=== PATIENT | female | born 1925 | race Caucasian/White ===

== ENCOUNTER 2016-05-03 11:57 | Outpatient (CLI) | payer MEDICARE, OTHER ==
[~2016-05-03] VITALS: Ht 157.5 cm; Wt 66.2 kg
[~2016-05-03 11:57] MED LIST: ACET-168 PO; ACHD5005 PO; ALN70T PO; ALPR0.254 PO; AMLO10TA PO; AMLO10TA82 PO; AMLO5TAB2 PO; AMLO5TAB4 PO; ASCO500C14 PO; ASPI-892 PO; ASPIRIN PO; BIOTIN 5000 MCG PO; BISA5TAB20 PO; CALC-656 PO; CALC-781 PO; CALC3.7S2; CARV12.53 PO; CARV25TA PO; CARV6.25 PO; CARV6.252 PO; CEFT1VIA58 IM; CHOL10003 PO; CHOL10007 PO; CLD600T; CND32T; CRV25T PO; CYAN10007 PO; DICL50TA6; DOXA8TAB3 PO; DOXA8TAB33 PO; E400C; FERR325C PO; FURO20TA4 PO; FURO40TA4 PO; HYDR-3812 PO; HYDR1TAB PO; HYDR1TAB66 PO; L.AC1CAP6 PO; LOSA100T16 PO; LOSA100T7 PO; LUTE10TA PO; LUTE20TA PO; LUTEIN 20MG; MAGN400O7 PO; MECL-106 PO; MECL12.579 PO; MERO500V3 IV; MICO142C TP; MULT-10 PO; MULT-166 PO; MULT-928 PO; MULT1CAP27 PO; NAPR220C11 PO; NITR-65 PO; NITR100C10 PO; OMEG-11 PO; OMEP20CA12 PO; ONDA4TAB10 PO; POTA10CA43 PO; POTA10TA36 PO; POTA99TA15 PO; POTA99TA7 PO; SENN1TAB33 PO; TOLT4CAP13 PO; TOLTA4 PO; TRAM50TA2 PO; TRIA1TAB3 PO; VITA-198 PO; VITA10007 PO; oscal PO; potassium PO; vit b 12 PO; vit c; vit d PO; vit e
--- OUTSIDE RECORDS SUMMARY | 2016-05-03 12:01 | XMS REPORT | Continuity of Care Document ---
Author Author [facility] Organization [facility] Address Unknown Phone Unavailable Allergies Active Description Code Type Severity Reaction Onset Reported/Identified Relationship to Patient Clinical Status Yes acetaminophen [id number] Drug Allergy Unknown N/A 02/17/2011 Yes propoxyphene napsylate [id number] Drug Allergy Unknown N/A 02/17/2011 Yes egg [id number] Drug Allergy Unknown N/A 04/29/2014 Medications Problems Date Dx Coded Attending Type Code Diagnosis Diagnosed By 10/25/2011 Ot 285.9 10/25/2011 Ot 458.9 10/25/2011 Ot 780.4 10/25/2011 Ot 913.4 10/25/2011 Ot E906.4 01/30/2014 MARY CASAS LIDAR SCIENTIST Ot 564.00 01/30/2014 MARY CASAS APRN Ot 789.04 03/25/2014 SHANNA ALBRIGHT, MARCO ANTONIO Boone Ot 599.0 04/26/2014 SHANNA ALBRIGHT, MARCO ANTONIO Boone Ot 599.0 04/29/2014 Ot 285.9 04/29/2014 Ot 787.7 04/29/2014 Ot 401.9 04/29/2014 Ot 530.81 04/29/2014 Ot 715.90 04/29/2014 Ot 724.5 04/29/2014 Ot 737.10 04/29/2014 Ot 781.2 04/29/2014 Ot 401.9 04/29/2014 Ot 530.81 04/29/2014 Ot 715.90 04/29/2014 Ot 724.5 04/29/2014 Ot 737.10 04/29/2014 Ot 781.2 06/14/2014 SHANNA ALBRIGHT, MARCO ANTONIO Boone Ot 599.0 11/08/2014 SANDI ALBRIGHT, CASSIDY Rasheed Ot 272.0 11/08/2014 SANDI ALBRIGHT, CASSIDY T Ot 401.9 11/08/2014 SANDI ALBRIGHT, CASSIDY T Ot 443.9 11/08/2014 SANDI ALBRIGHT, CASSIDY T Ot 733.00 11/08/2014 SANDI ALBRIGHT, CASSIDY T Ot 782.3 11/08/2014 SANDI ALBRIGHT, CASSIDY T Ot 821.20 11/08/2014 SANDI ALBRIGHT, CASSIDY T Ot 959.6 11/08/2014 SANDI LABRIGHT, CASSIDY T Ot E000.8 11/08/2014 SANDI ALBRIGHT, CASSIDY T Ot E849.0 11/08/2014 SANDI ALBRIGHT, CASSIDY T Ot E888.9 11/08/2014 SANDI ALBRIGHT, CASSIDY T Ot V45.01 11/08/2014 SANDI ALBRIGHT, CASSIDY T Ot V49.65 05/02/2015 MARCO ANTONIO OTERO MD Ot E78.0 PURE HYPERCHOLESTEROLEMIA 05/02/2015 MARCO ANTONIO OTERO MD Ot E78.5 HYPERLIPIDEMIA, UNSPECIFIED 05/02/2015 MARCO ANTONIO OTERO MD Ot E87.6 HYPOKALEMIA 05/02/2015 MARCO ANTONIO OTERO MD Ot I10 ESSENTIAL (PRIMARY) HYPERTENSION 05/02/2015 MARCO ANTONIO OTERO MD Ot I73.9 PERIPHERAL VASCULAR DISEASE, UNSPECIFIED 05/02/2015 MARCO ANTONIO OTERO MD Ot J18.9 PNEUMONIA, UNSPECIFIED ORGANISM 05/02/2015 MARCO ANTONIO OTERO MD Ot K52.9 NONINFECTIVE GASTROENTERITIS AND COLITIS 05/02/2015 MARCO ANTONIO OTERO MD Ot M81.0 AGE-RELATED OSTEOPOROSIS W/O CURRENT PAT 05/02/2015 MARCO ANTONIO OTERO MD Ot R35.0 FREQUENCY OF MICTURITION 05/02/2015 MARCO ANTONIO OTERO MD Ot Z95.0 PRESENCE OF CARDIAC PACEMAKER 05/02/2015 MARCO ANTONIO OTERO MD Ot Z95.828 PRESENCE OF OTHER VASCULAR IMPLANTS AND 05/16/2015 MARCO ANTONIO OTERO MD Ot R30.0 05/17/2015 MARCO ANTONIO OTERO MD Ot B96.20 05/17/2015 MARCO ANTONIO OTERO MD Ot I10 05/17/2015 MARCO ANTONIO OTERO MD Ot J18.9 05/17/2015 MARCO ANTONIO OTERO MD, Ot J81.1 05/17/2015 SHANNA ALBRIGHT, MARCO ANTONIO A Ot J90 05/17/2015 SHANNA ALBRIGHT, MARCO ANTONIO A Ot M81.0 05/17/2015 SHANNA ALBRIGHT, MARCO ANTONIO A Ot N39.0 05/17/2015 SHANNA ALBRIGHT, MARCO ANTONIO A Ot R09.02 05/17/2015 SHANNA ALBRIGHT, MARCO ANTONIO A Ot R41.0 05/17/2015 SHANNA ALBRIGHT, MARCO ANTONIO A Ot Z23 05/17/2015 SHANNA ALBRIGHT, MARCO ANTONIO A Ot Z66 05/17/2015 SHANNA ALBRIGHT, MARCO ANTONIO A Ot Z95.0 05/19/2015 SHANNA ALBRIGHT, MARCO ANTONIO A Ot I25.10 05/19/2015 SHANNA ALBRIGHT, MARCO ANTONIO A Ot R06.00 05/19/2015 SHANNA ALBRIGHT, MARCO ANTONIO A Ot R60.9 06/06/2015 SHANNA ALBRIGHT, MARCO ANTONIO A Ot I25.10 06/06/2015 SHANNA ALBRIGHT, MARCO ANTONIO A Ot R06.00 06/06/2015 SHANNA ALBRIGHT, MARCO ANTONIO A Ot R60.9 07/18/2015 SRIKANTH IRWIN DO, Ot G31.9 DEGENERATIVE DISEASE OF NERVOUS SYSTEM, 07/18/2015 SRIKANTH IRWIN DO, Ot M47.812 SPONDYLOSIS W/O MYELOPATHY OR RADICULOPA 07/18/2015 SRIKANTH IRWIN DO, Ot S01.01XA LACERATION WITHOUT FOREIGN BODY OF SCALP 07/18/2015 SRIKANTH IRWIN DO, Ot S16.1XXA STRAIN OF MUSCLE, FASCIA AND TENDON AT N 07/18/2015 SRIKANTH IRWIN DO Ot W07.XXXA FALL FROM CHAIR, INITIAL ENCOUNTER 07/18/2015 SRIKANTH IRWIN DO, Ot Y92.[address] IN SKILLED NURSING PLACE 07/18/2015 SRIKANTH IRWIN DO, Ot Y99.8 OTHER EXTERNAL CAUSE STATUS 07/28/2015 SRIKANTH IRWIN DO, Ot G31.9 DEGENERATIVE DISEASE OF NERVOUS SYSTEM, 07/28/2015 SRIKANTH IRWIN DO, Ot M47.812 SPONDYLOSIS W/O MYELOPATHY OR RADICULOPA 07/28/2015 SRIKANTH IRWIN DO, Ot S01.01XA LACERATION WITHOUT FOREIGN BODY OF SCALP 07/28/2015 SRIKANTH IRWIN DO Ot S16.1XXA STRAIN OF MUSCLE, FASCIA AND TENDON AT N 07/28/2015 SRIKANTH IRWIN DO Ot W07.XXXA FALL FROM CHAIR, INITIAL ENCOUNTER 07/28/2015 SRIKANTH IRWIN DO Ot Y92.[address] IN SKILLED NURSING PLACE 07/28/2015 SRIKANTH IRWIN DO Ot Y99.8 OTHER EXTERNAL CAUSE STATUS Procedures Results Encounters ACCT No. Visit Date/Time Discharge Status Pt. Type Provider Facility Loc./Unit Complaint [id number] 07/18/2015 16:43:00 2015 18:00:00 DIS Emergency SRIKANTH IRWIN DO [facility] ER [id number] 05/14/2015 03:32:00 2015 11:16:00 DIS Inpatient MARCO ANTONIO OTERO MD Via [address] [id number] 04/27/2015 20:19:00 2015 15:05:00 DIS Inpatient MARCO ANTONIO OTERO MD Via [address] [id number] 11/08/2014 09:18:00 2014 12:35:00 DIS Emergency CASSIDY JUNIOR MD Via [facility] [id number] 05/21/2014 18:20:00 2014 23:59:59 CLS Outpatient MARCO ANTONIO OTERO MD Via [facility] [id number] 04/21/2014 13:12:00 2014 23:59:59 CLS Preadmit MARCO ANTONIO OTERO MD Via [facility] REHAB [id number] 04/16/2014 16:46:00 2014 23:59:59 CLS Outpatient MARCO ANTONIO OTERO MD Via [facility] [id number] 02/26/2014 11:45:00 2013 23:59:59 CLS Outpatient MARCO ANTONIO OTERO MD [facility] [id number] 01/30/2014 15:39:00 2013 19:08:00 DIS Emergency MARY CASAS APRN [facility] [id number] 03/20/2013 08:22:00 2013 09:38:00 DIS Outpatient [id number] 01/23/2013 07:36:00 2012 08:44:00 DIS Outpatient [id number] 07/04/2012 09:30:00 2012 23:59:59 CLS Outpatient [id number] 05/08/2015 16:26:00 ACT Outpatient MARCO ANTONIO OTERO MD [facility] LAB [id number] 04/22/2015 20:14:00 ACT Outpatient MARCO ANTONIO OTERO MD [facility] [id number] 04/29/2014 00:40:00 Document Registration [id number] 10/24/2011 10:35:00 Document Registration [id number] 06/27/2010 00:00:00 Document Registration
[2016-05-03 12:10] VITALS: BP 153/73
[2016-05-03] MEDS ORDERED: ASCO500T6 PO (12:21)
[2016-05-03] MEDS ORDERED: POTA2TAB15 PO (12:21)
[2016-05-03] MEDS ORDERED: LOSA50TA36 PO (12:21)
[2016-05-03] MEDS ORDERED: DOXA8TAB73 PO (12:21)
[2016-05-03 13:04] LABS: BASOPHILS % (AUTO) 1 % (0-10); EOSINOPHILS # (AUTO) 0.1 10^3/uL (0.0-0.3); EOSINOPHILS % (AUTO) 2 % (0-10); LYMPHOCYTES # (AUTO) 1.7 X 10^3 (1.0-4.0); LYMPHOCYTES % (AUTO) 27 % (12-44); MEAN CORPUSCULAR HEMOGLOBIN 30 PG (25-34); MEAN CORPUSCULAR HGB CONC 33 G/DL (32-36); MEAN CORPUSCULAR VOLUME 93 FL (80-99); MEAN PLATELET VOLUME 9.7 FL (7.4-10.4); MONOCYTES # (AUTO) 0.4 X 10^3 (0.0-1.0); MONOCYTES % (AUTO) 7 % (0-12); NEUTROPHILS % (AUTO) 64 % (42-75); PLATELET COUNT 164 10^3/uL (130-400); RED BLOOD COUNT 3.43 10^6/uL (4.35-5.85); RED CELL DISTRIBUTION WIDTH 12.5 % (10.0-14.5); WHITE BLOOD COUNT 6.2 10^3/uL (4.3-11.0)
[2016-05-03 13:21] LABS: CREATININE SERUM 0.94 MG/DL (0.60-1.30); POTASSIUM 3.5 MMOL/L (3.6-5.0)
== END 2016-05-03 12:40 | disposition home or self-care (01) ==
LOC: PREOP 11:57
PROVIDERS: ATTEND Otolaryngology Otolaryngology/Facial Plastic Surgery
DX: Z01.812 Encounter for preprocedural laboratory examination (principal); Z11.2 Encounter for screening for other bacterial diseases; L98.9 Disorder of the skin and subcutaneous tissue, unspecified
CPT/HCPCS: 36415; 80048; 85025; 87081; 93005

== ENCOUNTER → 2016-05-08 | Outpatient (CLI) | payer MEDICARE, OTHER ==
[~2016-05-08] VITALS: Ht 160 cm; Wt 66.7 kg
[~2016-05-08] MED LIST changes: +ASCO500T6 PO; +CEPH-507 PO; +DOXA8TAB73 PO; +LOSA50TA36 PO; +MUPI22OI2 TP; +POTA2TAB15 PO; +REGADENOSON 0.4 MG/5 ML SYR (LEXISCAN) IV ONE
--- OUTSIDE RECORDS SUMMARY | 2016-05-08 11:51 | XMS REPORT | Continuity of Care Document ---
Author Author [facility] Organization [facility] Address Unknown Phone Unavailable Allergies Active Description Code Type Severity Reaction Onset Reported/Identified Relationship to Patient Clinical Status Yes acetaminophen [id number] Drug Allergy Unknown N/A 02/17/2011 Yes propoxyphene napsylate [id number] Drug Allergy Unknown N/A 02/17/2011 Yes egg [id number] Drug Allergy Unknown N/A 04/29/2014 Medications Problems Date Dx Coded Attending Type Code Diagnosis Diagnosed By 10/25/2011 Ot 285.9 10/25/2011 Ot 458.9 10/25/2011 Ot 780.4 10/25/2011 Ot 913.4 10/25/2011 Ot E906.4 01/30/2014 MARY CASAS PUBLIC INTERVIEWER Ot 564.00 01/30/2014 MARY CASAS APRN Ot [...] ALBRIGHT, CASSIDY T Ot 959.6 11/08/2014 SANDI ALBRIGHT, CASSIDY T Ot E000.8 11/08/2014 SANDI ALBRIGHT, [...] IRWIN DO, Ot Y92.[address] IN LONG TERM PLACE 07/18/2015 SRIKANTH IRWIN DO, Ot Y99.8 [...] IRWIN DO Ot Y92.[address] IN LONG TERM PLACE 07/28/2015 SRIKANTH IRWIN DO Ot Y99.8 OTHER EXTERNAL CAUSE STATUS 05/02/2016 Ot 729.5 PAIN IN LIMB 05/02/2016 Ot 729.81 SWELLING OF LIMB 05/02/2016 Ot 782.3 EDEMA 05/02/2016 Ot V45.89 POSTSURGICAL STATES NEC 05/03/2016 YASMIN MAHARAJ MD Ot L98.9 DISORDER OF THE SKIN AND SUBCUTANEOUS TI 05/03/2016 YASMIN MAHARAJ MD Ot Z01.812 ENCOUNTER FOR PREPROCEDURAL LABORATORY E 05/03/2016 YASMIN MAHARAJ MD Ot Z11.2 ENCOUNTER FOR SCREENING FOR OTHER BACTER 05/04/2016 YASMIN MAHARAJ MD Ot L98.9 DISORDER OF THE SKIN AND SUBCUTANEOUS TI 05/04/2016 YASMIN MAHARAJ MD Ot Z01.812 ENCOUNTER FOR PREPROCEDURAL LABORATORY E 05/04/2016 YASMIN MAHARAJ MD Ot Z11.2 ENCOUNTER FOR SCREENING FOR OTHER BACTER 05/05/2016 YASMIN MAHARAJ MD Ot L98.9 DISORDER OF THE SKIN AND SUBCUTANEOUS TI 05/05/2016 YASMIN MAHARAJ MD Ot Z01.812 ENCOUNTER FOR PREPROCEDURAL LABORATORY E 05/05/2016 YASMIN MAHARAJ MD Ot Z11.2 ENCOUNTER FOR SCREENING FOR OTHER BACTER Procedures Results Test Result Range Complete blood count (CBC) with automated white blood cell (WBC) differential - 05/03/16 12:35 Blood leukocytes automated count (number/volume) 6.2 10*3/ uL 4.3-11.0 Blood erythrocytes automated count (number/volume) 3.43 10*6 /uL 4.35-5.85 Venous blood hemoglobin measurement (mass/volume) 10.4 g/dL 11.5-16.0 Blood hematocrit (volume fraction) 32 % 35-52 Automated erythrocyte mean corpuscular volume 93 [foz_us] 80-99 Automated erythrocyte mean corpuscular hemoglobin (mass per erythrocyte) 30 pg 25-34 Automated erythrocyte mean corpuscular hemoglobin concentration measurement ( mass/volume) 33 g/dL 32-36 Automated erythrocyte distribution width ratio 12.5 % 10.0-14.5 Automated blood platelet count (count/volume) 164 10*3/uL 130-400 Automated blood platelet mean volume measurement 9.7 [foz_us ] 7.4-10.4 Automated blood neutrophils/100 leukocytes 64 % 42-75 Automated blood lymphocytes/100 leukocytes 27 % 12-44 Blood monocytes/100 leukocytes 7 % 0-12 Automated blood eosinophils/100 leukocytes 2 % 0-10 Automated blood basophils/100 leukocytes 1 % 0-10 Blood neutrophils automated count (number/volume) 4.0 10*3 1.8-7.8 Blood lymphocytes automated count (number/volume) 1.7 10*3 1.0-4.0 Blood monocytes automated count (number/volume) 0.4 10*3 0.0-1.0 Automated eosinophil count 0.1 10*3/uL 0.0-0.3 Automated blood basophil count (count/volume) 0.0 10*3/uL 0.0-0.1 Whole blood basic metabolic panel - 05/03/16 12:35 Serum or plasma sodium measurement (moles/volume) 143 mmol/ L 135-145 Serum or plasma potassium measurement (moles/volume) 3.5 mmol/L 3.6-5.0 Serum or plasma chloride measurement (moles/volume) 109 mmol /L 98-107 Carbon dioxide 23 mmol/L 21-32 Serum or plasma anion gap determination (moles/volume) 11 mmol/L 5-14 Serum or plasma urea nitrogen measurement (mass/volume) 30 mg/dL 7-18 Serum or plasma creatinine measurement (mass/volume) 0.94 mg /dL 0.60-1.30 Serum or plasma urea nitrogen/creatinine mass ratio 32 NRG Serum or plasma creatinine measurement with calculation of estimated glomerular filtration rate 56 NRG Serum or plasma glucose measurement (mass/volume) 93 mg/dL 70-105 Serum or plasma calcium measurement (mass/volume) 9.0 mg/dL 8.5-10.1 Methicillin resistant Staphylococcus aureus (MRSA) screening culture - 12:35 Methicillin resistant Staphylococcus aureus (MRSA) screening culture NEG NRG Encounters ACCT No. Visit Date/Time Discharge Status Pt. Type Provider Facility Loc./Unit Complaint [id number] 05/03/2016 11:57:00 2016 12:40:00 DIS Outpatient CAROL ANN ALBRIGHT, YASMIN P [facility] PREOP LESIONS X2 [id number] 07/18/2015 16:43:00 2015 18:00:00 DIS Emergency SRIKANTH IRWIN DO [facility] ER [id number] 05/14/2015 03:32:00 2015 11:16:00 DIS Inpatient MARCO ANTONIO OTERO MD Via [address] [id number] 04/27/2015 20:19:00 2015 15:05:00 DIS Inpatient MARCO ANTONIO OTERO MD Via [address] [id number] 11/08/2014 09:18:00 2014 12:35:00 DIS Emergency SANDI ALBRIGHT, CASSIDY Rasheed [facility] ER [id number] 05/21/2014 18:20:00 2014 23:59:59 CLS Outpatient MARCO ANTONIO OTERO MD [facility] [id number] 04/21/2014 13:12:00 2014 23:59:59 CLS Preadmit MARCO ANTONIO OTERO MD [facility] REHAB [id number] 04/16/2014 16:46:00 2014 23:59:59 CLS Outpatient MARCO ANTONIO OTERO MD [facility] LABNPT [id number] 02/26/2014 11:45:00 2013 23:59:59 CLS Outpatient MARCO ANTONIO OTERO MD [facility] LABNPT [id number] 01/30/2014 15:39:00 2013 19:08:00 DIS Emergency MARY CASAS APRN [facility] ER [id number] 03/20/2013 08:22:00 2013 09:38:00 DIS Outpatient [id number] 01/23/2013 07:36:00 2012 08:44:00 DIS Outpatient [id number] 07/04/2012 09:30:00 2012 23:59:59 CLS Outpatient [id number] 05/10/2016 08:00:00 PEN Keisha MAHARAJ MD, YASMIN Villanueva [facility] SDC LESIONS X2 [id number] 05/08/2015 16:26:00 ACT Outpatient MARCO ANTONIO OTERO MD [facility] LAB [id number] 04/22/2015 20:14:00 ACT Outpatient MARCO ANTONIO OTERO MD [facility] [id number] 04/29/2014 00:40:00 Document Registration [id number] 10/24/2011 10:35:00 Document Registration [id number] 02/17/2011 22:12:00 Document Registration [id number] 06/27/2010 00:00:00 Document Registration
[2016-05-08] MEDS: CATHETER FLUSH 10 ML SYR IV PRN ×2 (12:13→13:32)
[2016-05-08 13:28] VITALS: BP 155/67
--- NOTE | 2016-05-10 09:42 | STRESS TEST ---
PROCEDURE PHYSICIAN: BRENDA ALMAZAN DATE OF PROCEDURE: 05/08/2016 RESTING AND POST REGADENOSON TECHNETIUM 99M TETROFOSMIN SPECT CT IMAGING: ORDERING PHYSICIAN: Dr. Almazan PRIMARY PHYSICIAN: Dr. Barajas CLINICAL DIAGNOSIS: 1. Shortness of breath. 2. Peripheral arterial disease. Baseline images were carried out after injection of 10.4 mCi of technetium 99m tetrofosmin. This was followed by 0.4 mg of regadenoson and 30.3 mCi of technetium 99m tetrofosmin for stress imaging. The electrocardiogram showed sinus rhythm at baseline although P-waves are sometimes difficult to locate. The electrocardiogram did not change significantly with regadenoson infusion. Images at rest and following stress, does not indicate any distinct perfusion defects consistent with significant myocardial ischemia or infarction. Some degree of diaphragmatic attenuation seen both at rest and following regadenoson infusion. Gated images show normal global left ventricular systolic function with normal regional wall motion. Left ventricular ejection fraction is calculated to be 81%. Left ventricular end-diastolic volume is 51 mL. CONCLUSIONS: 1. No evidence of significant myocardial ischemia or infarction on this study. 2. Normal regional wall motion. 3. Normal global left ventricular systolic function with a calculated ejection fraction 81%. Job ID: [id number] Dictated Date: 05/09/2016 17:23:16 Equipment Engineering Technician Date: 05/10/2016 09:38:16 / jose guadalupe
== END ==
LOC: CARD 11:47
PROVIDERS: ATTEND Internal Medicine Cardiovascular Disease
DX: I73.89 Other specified peripheral vascular diseases (principal); R06.02 Shortness of breath; Z95.0 Presence of cardiac pacemaker; I10 Essential (primary) hypertension; I70.1 Atherosclerosis of renal artery; I65.23 Occlusion and stenosis of bilateral carotid arteries
CPT/HCPCS: 78452; 93017

== ENCOUNTER 2016-05-10 06:11 | Day surgery (SDC) | payer MEDICARE, OTHER ==
[~2016-05-10] VITALS: Ht 157.5 cm; Wt 66.2 kg
[~2016-05-10 06:11] MED LIST changes: -CEPH-507 PO; -MUPI22OI2 TP
--- OUTSIDE RECORDS SUMMARY | 2016-05-10 06:16 | XMS REPORT | Continuity of Care Document ---
Author Author [facility] Organization [facility] Address Unknown Phone Unavailable Allergies Active Description Code Type Severity Reaction Onset Reported/Identified Relationship to Patient Clinical Status Yes acetaminophen [id number] Drug Allergy Unknown N/A 02/17/2011 Yes propoxyphene napsylate [id number] Drug Allergy Unknown N/A 02/17/2011 Yes egg [id number] Drug Allergy Unknown N/A 04/29/2014 Medications Problems Date Dx Coded Attending Type Code Diagnosis Diagnosed By 10/25/2011 Ot 285.9 10/25/2011 Ot 458.9 10/25/2011 Ot 780.4 10/25/2011 Ot 913.4 10/25/2011 Ot E906.4 01/30/2014 MARY CASAS ASSISTED LIVING NURSING DIRECTOR Ot 564.00 01/30/2014 MARY CASAS APRN Ot [...] IRWIN DO, Ot Y92.[address] IN USP PLACE 07/18/2015 SRIKANTH IRWIN DO, Ot Y99.8 [...] IRWIN DO Ot Y92.[address] IN USP PLACE 07/28/2015 SRIKANTH IRWIN DO Ot Y99.8 [...] Z11.2 ENCOUNTER FOR SCREENING FOR OTHER BACTER 05/08/2016 CARLOS ALBRIGHT FACC, ALI FACP CCDS Ot R06.02 SHORTNESS OF BREATH 05/09/2016 YASMIN MAHARAJ MD Ot L98.9 DISORDER OF THE SKIN AND SUBCUTANEOUS TI 05/09/2016 YASMIN MAHARAJ MD Ot Z01.812 ENCOUNTER FOR PREPROCEDURAL LABORATORY E 05/09/2016 YASMIN MAHARAJ MD Ot Z11.2 ENCOUNTER FOR SCREENING FOR OTHER BACTER 05/09/2016 CARLOS ALBRIGHT FACC, ALI FACP CCDS Ot I10 ESSENTIAL (PRIMARY) HYPERTENSION 05/09/2016 CARLOS ALBRIGHT FACGabriela, ALI FACP CCDS Ot I65.23 OCCLUSION AND STENOSIS OF BILATERAL LEPE 05/09/2016 CARLOS ALBRIGHT FACC, ALI FACP CCDS Ot I70.1 ATHEROSCLEROSIS OF RENAL ARTERY 05/09/2016 CARLOS ALBRIGHT [facility] CCDS Ot I73.89 OTHER SPECIFIED PERIPHERAL VASCULAR DISE 05/09/2016 CARLOS ALBRIGHT [facility] Ot R06.02 SHORTNESS OF BREATH 05/09/2016 CARLOS ALBRIGHT [facility] CCDS Ot Z95.0 PRESENCE OF CARDIAC PACEMAKER Procedures Results Test Result Range Complete blood [...] Status Pt. Type Provider Facility Loc./Unit Complaint [id number] 05/03/2016 11:57:00 2016 12:40:00 DIS Outpatient CAROL ANN ALBRIGHT, YASMIN Villanueva [facility] PREOP LESIONS X2 [id number] 07/18/2015 16:43:00 2015 18:00:00 DIS Emergency SRIKANTH IRWIN DO [facility] ER [id number] 05/14/2015 03:32:00 2015 11:16:00 DIS Inpatient MARCO ANTONIO OTERO MD [facility] 4TH [id number] 04/27/2015 20:19:00 2015 15:05:00 DIS Inpatient MARCO ANTONIO OTERO MD [facility] 4TH [id number] 11/08/2014 09:18:00 2014 12:35:00 DIS Emergency SANDI ALBRIGHT, CASSIDY Rasheed [facility] ER [id number] 05/21/2014 18:20:00 2014 23:59:59 CLS Outpatient MARCO ANTONIO OTERO MD [facility] [id number] 04/21/2014 13:12:00 2014 23:59:59 CLS Preadmit MARCO ANTONIO OTERO MD [facility] REHAB [id number] 04/16/2014 16:46:00 2014 23:59:59 CLS Outpatient MARCO ANTONIO OTERO MD [facility] LABNPT [id number] 02/26/2014 11:45:00 2013 23:59:59 CLS Outpatient MARCO ANTONIO OTERO MD [facility] LABNPT [id number] 01/30/2014 15:39:00 2013 19:08:00 DIS Emergency MARY CASAS ASSISTED LIVING NURSING DIRECTOR [facility] ER [id number] 03/20/2013 08:22:00 2013 09:38:00 DIS Outpatient [id number] 01/23/2013 07:36:00 2012 08:44:00 DIS Outpatient [id number] 07/04/2012 09:30:00 2012 23:59:59 CLS Outpatient [id number] 05/10/2016 06:11:00 ACT Outpatient CAROL ANN ALBRIGHT, YASMIN P [facility] SDC LESIONS X2 [id number] 05/08/2016 11:47:00 ACT Outpatient CARLOS ALBRIGHT FACC, BRENDA FACP CCDS [facility] CARD SOB,PAD,PACEMAKER [id number] 05/08/2015 16:26:00 ACT Outpatient MARCO ANTONIO OTERO MD [facility] LAB [id number] 04/22/2015 20:14:00 ACT Outpatient MARCO ANTONIO OTERO MD [facility] MSL [id number] 04/29/2014 00:40:00 Document Registration [id number] 10/24/2011 10:35:00 Document Registration [id number] 02/17/2011 22:12:00 Document Registration [id number] 06/27/2010 00:00:00 Document Registration
--- OUTSIDE RECORDS SUMMARY | 2016-05-10 06:16 | XMS REPORT | Continuity of Care Document ---
Author Author [facility] Organization [facility] Address Unknown Phone Unavailable Allergies Active Description Code Type Severity Reaction Onset Reported/Identified Relationship to Patient Clinical Status Yes acetaminophen [id number] Drug Allergy Unknown N/A 02/17/2011 Yes propoxyphene napsylate [id number] Drug Allergy Unknown N/A 02/17/2011 Yes egg [id number] Drug Allergy Unknown N/A 04/29/2014 Medications Problems Date Dx Coded Attending Type Code Diagnosis Diagnosed By 10/25/2011 Ot 285.9 10/25/2011 Ot 458.9 10/25/2011 Ot 780.4 10/25/2011 Ot 913.4 10/25/2011 Ot E906.4 01/30/2014 MARY CASAS SCHEDULING ADMINISTRATOR Ot 564.00 01/30/2014 MARY CASAS APRN Ot [...] ATHEROSCLEROSIS OF RENAL ARTERY 05/09/2016 CARLOS ALBRIGHT [facility] CCDS Ot I73.89 OTHER SPECIFIED PERIPHERAL VASCULAR DISE 05/09/2016 CARLOS ALBRIGHT [facility] Ot R06.02 SHORTNESS OF BREATH 05/09/2016 CARLOS ALBRIGHT [facility] CCDS Ot Z95.0 PRESENCE OF [...] Status Pt. Type Provider Facility Loc./Unit Complaint [id number] 05/03/2016 11:57:00 2016 12:40:00 DIS Outpatient CAROL ANN ALBIRGHT, YASMIN Villanueva [facility] PREOP LESIONS X2 [id number] 07/18/2015 16:43:00 2015 18:00:00 DIS Emergency SRIKANTH IRWIN DO [facility] ER [id number] 05/14/2015 03:32:00 2015 11:16:00 DIS Inpatient MARCO ANTONIO OTERO MD [facility] 4TH [id number] 04/27/2015 20:19:00 2015 15:05:00 DIS Inpatient MARCO ANTONIO OTERO MD [facility] 4TH [id number] 11/08/2014 09:18:00 2014 12:35:00 DIS Emergency SANDI ALBRIGHT, CASSIDY Rasheed [facility] ER [id number] 05/21/2014 18:20:00 2014 23:59:59 CLS Outpatient MARCO ANTONIO OTERO MD [facility] [id number] 04/21/2014 13:12:00 2014 23:59:59 CLS Preadmit MARCO ANTONIO OTERO MD [facility] REHAB [id number] 04/16/2014 16:46:00 2014 23:59:59 CLS Outpatient MARCO ANTONIO OTERO MD [facility] LABNPT [id number] 02/26/2014 11:45:00 2013 23:59:59 CLS Outpatient MARCO ANTONIO OTERO MD [facility] LABNPT [id number] 01/30/2014 15:39:00 2013 19:08:00 DIS Emergency MARY CASAS SCHEDULING ADMINISTRATOR [facility] ER [id number] 03/20/2013 08:22:00 2013 09:38:00 DIS Outpatient [id number] 01/23/2013 07:36:00 2012 08:44:00 DIS Outpatient [id number] 07/04/2012 09:30:00 2012 23:59:59 CLS Outpatient [id number] 05/10/2016 06:11:00 ACT Outpatient CAROL ANN ALBRIGHT, YASMIN P [facility] SDC LESIONS X2 [id number] 05/08/2016 11:47:00 ACT Outpatient CARLOS ALBRIGHT FACC, BRENDA FACP CCDS [facility] CARD SOB,PAD,PACEMAKER [id number] 05/08/2015 16:26:00 ACT Outpatient MARCO ANTONIO OTERO MD [facility] LAB [id number] 04/22/2015 20:14:00 ACT Outpatient MARCO ANTONIO OTERO MD [facility] MSL [id number] 04/29/2014 00:40:00 Document Registration [id number] 10/24/2011 10:35:00 Document Registration [id number] 02/17/2011 22:12:00 Document Registration [id number] 06/27/2010 00:00:00 Document Registration
[2016-05-10] MEDS ORDERED: LACTATED RINGERS 1,000 ML IV PRN (06:39)
--- NOTE | 2016-05-10 06:49 | Progress Note-Pre Operative ---
Pre-Operative Progress Note H&P Reviewed The H&P was reviewed, patient examined and no changes noted. Date H&P Reviewed: May 10, 2016 Time H&P Reviewed: 06:45 Pre-Operative Diagnosis: Nasal Tip Lesion, Right [place] Lesion YASMIN MAHARAJ MD May 10, 2016 6:48 am
[2016-05-10] MEDS ORDERED: LIDOCAINE/EPI 1%-1:100,000 (XYLOCAINE) 20ML ONE (06:52)
[2016-05-10] MEDS ORDERED: MUPIROCIN 2% OINT 22 GM (BACTROBAN) TUBE ONE (06:52)
[2016-05-10] MEDS ORDERED: LACTATED RINGERS 1,000 ML IV ONE (07:05)
[2016-05-10] MEDS ORDERED: proPOfol 200 MG/20 ML (DIPRIVAN) VIAL IV ONE (07:05)
[2016-05-10] MEDS ORDERED: LIDOCAINE PF 2% 10 ML (XYLOCAINE) AMP ONE (07:05)
[2016-05-10] MEDS ORDERED: SEVOFLURANE (ULTANE) 15 ML INHAL SOLN ONE ×4 (07:05→08:44)
[2016-05-10] MEDS ORDERED: fentaNYL INJECTION 100 MCG/2 ML AMP ONE (07:06)
[2016-05-10 07:40] VITALS: BP 161/80
[2016-05-10] MEDS ORDERED: BSS 15 ML ONE (08:30)
--- NOTE | 2016-05-10 08:50 | Progress Note-Post Operative ---
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
[2016-05-10] MEDS ORDERED: fentaNYL INJECTION 100 MCG/2 ML AMP IV PRN (09:00)
[2016-05-10] MEDS ORDERED: ONDANSETRON 4 MG/2 ML (SDV) Z0FRAN IV ONE (09:00)
[2016-05-10] MEDS ORDERED: morphine INJ 10 MG/ML 1ML (SYR OR VIAL) IV PRN (09:00)
[2016-05-10 09:50] VITALS: BP 158/68
[2016-05-10 10:20] VITALS: BP 143/67
[2016-05-10] MEDS ORDERED: MUPI22OI2 TP (10:41)
[2016-05-10] MEDS ORDERED: CEPH-507 PO (10:41)
[2016-05-10 10:50] VITALS: BP 145/68
== END 2016-05-10 11:03 | disposition home or self-care (01) ==
LOC: SDC 06:11
PROVIDERS: ATTEND Otolaryngology Otolaryngology/Facial Plastic Surgery
DX: C44.321 Squamous cell carcinoma of skin of nose (principal); C44.329 Squamous cell carcinoma of skin of other parts of face
CPT/HCPCS: 88305; 88331; 88332